=== PATIENT | male | born 1980 | race Caucasian/White ===

== ENCOUNTER 2024-02-26 16:38 | Emergency (ER) | payer OTHER ==
[~2024-02-26] VITALS: Ht 177.8 cm; Wt 85.5 kg
[2024-02-26 18:21] LABS: BASOPHILS 1.1 % (0-2); EOSINOPHILS 1.3 % (0-6); HEMATOCRIT 43.7 % (35.0-50.0); HEMOGLOBIN 14.6 g/dL (12.0-18.0); MCH 28.9 (27-36); MCHC 33.4 g/dl (30-36); MCV 86.4 fl (81-99); MONOCYTES 5.7 % (0-12); NEUTROPHILS 80.9 % (39-80); PLATELET COUNT 272 K/uL (140-440); RBC 5.06 M/ul (4.3-5.7); RDW 13.6 (10.5-15.0)
[2024-02-26 18:37] LABS: ALBUMIN 3.8 g/dL (3.4-5.0); ALBUMIN/GLOBULIN RATIO 1.27 (1.1-2.4); ANION GAP 10.7 (7-21); BILIRUBIN, TOTAL 1.1 ng/dL (0.2-1.0); BUN/CREATININE RATIO 20.93 (6.0-28.6); CALCIUM 8.3 mg/dL (8.5-10.1); CREATININE, SERUM 0.86 mg/dL (0.70-1.30); POTASSIUM 3.7 mmol/L (3.5-5.1); PROTEIN, TOTAL 6.8 g/dL (6.4-8.2)
[2024-02-26] MEDS ORDERED: DEPAKOTE500 MG PO (18:38)
[2024-02-26 18:49] VITALS: BP 115/78
== END 2024-02-26 18:51 | disposition home or self-care (01) ==
LOC: ED 16:38
PROVIDERS: Emergency Medicine
DX: G40.909 Epilepsy, unspecified, not intractable, without status epilepticus (principal); I10 Essential (primary) hypertension; Z88.0 Allergy status to penicillin; Z88.2 Allergy status to sulfonamides
CPT/HCPCS: 36415; 80053; 85025